=== PATIENT | female | born 1990 | race Caucasian/White ===

== ENCOUNTER 2017-05-09 20:05 | Emergency (ER) | payer SELFPAY ==
[~2017-05-09 20:05] MED LIST: AMOXIL500 MG PO; AMPICILLIN500 MG PO; BG MC; COL100 PO; FLA500 PO; GLIPIZIDE5 MG PO; HUMULIN R100 U/1 M1 SC; LAC PO; LANTUS SOLOS100 U/M1 SQ; METFORMIN HCL1000 MG PO; NORCO1 TA2 PO; PRENATAL VITAMI1 TA1; VICES PO
[2017-05-09 20:50] VITALS: BP 144/94
== END 2017-05-09 20:50 | disposition home or self-care (01) ==
LOC: ED 20:05
DX: H66.92 Otitis media, unspecified, left ear (principal); R03.0 Elevated blood-pressure reading, without diagnosis of hypertension

== ENCOUNTER 2018-08-24 18:55 | Emergency (ER) | payer MEDICAID | END 2018-08-24 20:25 | disposition home or self-care (01) | LOC: ED 18:55 ==

== ENCOUNTER 2018-10-24 15:17 | Inpatient (IN) | payer SELFPAY ==
[~2018-10-24] VITALS: Ht 154.9 cm; Wt 83.9 kg
[2018-10-24 15:48] VITALS: Ht 154.9 cm; Wt 83.9 kg
[2018-10-24 17:47] LABS: BASOPHIL % 0.2 % (0-2); PLATELET COUNT 317 x10^3mcL (130-400); RED CELL DISTRIBUTION WIDTH 12.5 % (11.5-14.5)
[2018-10-24 18:00] LABS: CALCIUM 8.8 mg/dL (8.5-10.1); CARBON DIOXIDE 18.9 mmol/L (21-32); CREATININE SERUM 1.2 mg/dL (0.6-1.0); POTASSIUM SERUM 4.2 mmol/L (3.5-5.1)
[2018-10-24 18:02] LABS: BILIRUBIN TOTAL 0.37 mg/dL (0.20-1.00)
[2018-10-24 18:07] LABS: ALBUMIN 2.7 g/dL (3.4-5.0); TOTAL PROTEIN, SERUM 8.4 g/dL (6.4-8.2)
[2018-10-24 20:18] LABS: CHOLESTEROL/HDL RATIO 9.3
[2018-10-24 20:28] LABS: T3 TOTAL 0.7 ng/mL
[2018-10-24 20:35] LABS: CALCIUM 7.7 mg/dL (8.5-10.1); CARBON DIOXIDE 23.7 mmol/L (21-32); CHLORIDE SERUM 102 mmol/L (98-107); CREATININE SERUM 0.8 mg/dL (0.6-1.0); GFR1 > 60 mL/min; GLUCOSE SERUM 381 mg/dL (74-106); MAGNESIUM 1.8 mg/dL (1.8-2.4); PHOSPHOROUS 1.4 mg/dL (2.5-4.9); POTASSIUM SERUM 3.5 mmol/L (3.5-5.1); SODIUM SERUM 133 mmol/L (136-145)
[2018-10-24 20:43] LABS: FREE T4 1.33 ng/dL (0.76-1.46); FREE THYROXINE INDEX 2.9 ug/dL (1.4-4.5); T4(THYROXINE) 8.4 ug/dL (4.7-13.3)
[2018-10-24 21:27] VITALS: BP 129/74
[2018-10-24 23:30] VITALS: BP 116/61
[2018-10-25 00:50] LABS: CALCIUM 7.5 mg/dL (8.5-10.1); CARBON DIOXIDE 24.2 mmol/L (21-32); CHLORIDE SERUM 105 mmol/L (98-107); CREATININE SERUM 0.6 mg/dL (0.6-1.0); GFR1 > 60 mL/min; GLUCOSE SERUM 235 mg/dL (74-106); MAGNESIUM 1.8 mg/dL (1.8-2.4); PHOSPHOROUS 1.9 mg/dL (2.5-4.9); POTASSIUM SERUM 3.7 mmol/L (3.5-5.1); SODIUM SERUM 136 mmol/L (136-145)
[2018-10-25 03:31] VITALS: BP 117/73
[2018-10-25 05:24] LABS: BASOPHIL % 0.1 % (0-2); PLATELET COUNT 267 x10^3mcL (130-400); RED CELL DISTRIBUTION WIDTH 12.2 % (11.5-14.5)
[2018-10-25 05:36] LABS: CALCIUM 7.3 mg/dL (8.5-10.1); CARBON DIOXIDE 23.1 mmol/L (21-32); CHLORIDE SERUM 106 mmol/L (98-107); CREATININE SERUM 0.6 mg/dL (0.6-1.0); GFR1 > 60 mL/min; GLUCOSE SERUM 286 mg/dL (74-106); MAGNESIUM 1.6 mg/dL (1.8-2.4); PHOSPHOROUS 3.4 mg/dL (2.5-4.9); POTASSIUM SERUM 4.1 mmol/L (3.5-5.1); SODIUM SERUM 131 mmol/L (136-145)
[2018-10-25 07:35] VITALS: BP 128/65
[2018-10-25 11:17] LABS: microscopic required? YES; urine erythrocyte TRACE (NEGATIVE)
[2018-10-25 11:50] LABS: AMPHETAMINE QUAL UR NONE DETECTED (See below)
[2018-10-25 12:23] VITALS: BP 130/74
[2018-10-25 16:27] VITALS: BP 117/79
[2018-10-25 19:13] VITALS: BP 119/61
[2018-10-25 21:28] VITALS: BP 105/72
[2018-10-26 05:22] VITALS: BP 140/78
[2018-10-26 09:27] LABS: CARBON DIOXIDE 24.7 mmol/L (21-32); CHLORIDE SERUM 99 mmol/L (98-107); CREATININE SERUM 0.6 mg/dL (0.6-1.0); GFR1 > 60 mL/min; GLUCOSE SERUM 264 mg/dL (74-106); MAGNESIUM 1.8 mg/dL (1.8-2.4); PHOSPHOROUS 1.8 mg/dL (2.5-4.9); POTASSIUM SERUM 3.6 mmol/L (3.5-5.1); SODIUM SERUM 131 mmol/L (136-145)
[2018-10-26 09:29] LABS: PLATELET COUNT 309 x10^3mcL (130-400); RED CELL DISTRIBUTION WIDTH 12.5 % (11.5-14.5)
[2018-10-26 09:31] LABS: BASOPHIL % 0 % (0-2)
[2018-10-26 09:41] VITALS: BP 121/69
[2018-10-26] MEDS ORDERED: LANTI SQ (11:10)
[2018-10-26] MEDS ORDERED: LEVAQUIN250 M1 PO (11:11)
[2018-10-26] MEDS ORDERED: GLU500 PO (11:12)
[2018-10-26 12:45] VITALS: BP 116/69; BP 144/82
[2018-10-26 13:03] VITALS: BP 121/69
== END 2018-10-26 15:12 | disposition home or self-care (01) | DRG 637 ==
LOC: ED 15:17 → IC 19:18 → DU 10-25 18:40
PROVIDERS: Emergency Medicine; General Practice; ADMIT Internal Medicine
DX: E11.10 Type 2 diabetes mellitus with ketoacidosis without coma (principal); N17.0 Acute kidney failure with tubular necrosis; E43 Unspecified severe protein-calorie malnutrition; E87.1 Hypo-osmolality and hyponatremia; E11.00 Type 2 diabetes mellitus with hyperosmolarity without nonketotic hyperglycemic-hyperosmolar coma (NKHHC); E11.65 Type 2 diabetes mellitus with hyperglycemia; D72.829 Elevated white blood cell count, unspecified; E87.8 Other disorders of electrolyte and fluid balance, not elsewhere classified; E86.0 Dehydration; E78.1 Pure hyperglyceridemia; Z90.49 Acquired absence of other specified parts of digestive tract; Z98.891 History of uterine scar from previous surgery; Z83.3 Family history of diabetes mellitus; Z80.9 Family history of malignant neoplasm, unspecified; Z68.33 Body mass index [BMI] 33.0-33.9, adult; Z23 Encounter for immunization
CPT/HCPCS: 36600; 82962; 84439; 87804; 90658; 90732; C9113; J1815; J1956; J2270; J2405; J2765; J3490; J7030; Q0092

== ENCOUNTER 2019-04-03 10:27 | Emergency (ER) | payer MEDICAID ==
[~2019-04-03] VITALS: Ht 154.9 cm; Wt 88.9 kg
[~2019-04-03 10:27] MED LIST changes: +GLU500 PO; +LANTI SQ; +LEVAQUIN250 M1 PO
[2019-04-03 10:58] VITALS: Ht 154.9 cm; Wt 88.9 kg
[2019-04-03 12:33] VITALS: BP 138/77
== END 2019-04-03 12:33 | disposition home or self-care (01) ==
LOC: ED 10:27
DX: M25.511 Pain in right shoulder (principal); E11.9 Type 2 diabetes mellitus without complications; Z90.49 Acquired absence of other specified parts of digestive tract
CPT/HCPCS: J1885

== ENCOUNTER 2019-09-16 13:43 | Emergency (ER) | payer MEDICAID ==
[~2019-09-16] VITALS: Ht 154.9 cm; Wt 68.0 kg
[2019-09-16 14:00] VITALS: Ht 154.9 cm; Wt 68.0 kg
[2019-09-16 14:25] LABS: UA SPECIFIC GRAVITY 1.025 (1.005-1.035); microscopic required? YES; urine erythrocyte 3+ (NEGATIVE)
[2019-09-16 14:38] VITALS: BP 135/81
== END 2019-09-16 14:38 | disposition home or self-care (01) ==
LOC: ED 13:43
PROVIDERS: Emergency Medicine
DX: N39.0 Urinary tract infection, site not specified (principal); E11.9 Type 2 diabetes mellitus without complications; Z90.49 Acquired absence of other specified parts of digestive tract; Z98.890 Other specified postprocedural states; Z87.19 Personal history of other diseases of the digestive system
CPT/HCPCS: J0696